=== PATIENT | female | born 1980 | race Caucasian/White ===

== ENCOUNTER 2021-12-30 13:25 | Inpatient (IN) | payer OTHER ==
[2021-12-30] MEDS: ELECTROLYTE-148 SOLN 1,000 ML IV SCH (13:30)
[2021-12-30] MEDS ORDERED: CITRIC ACID/SODIUM CITRATE 30 ML UNIT-DOSE CUP PO ONE (14:01)
[2021-12-30 14:36] VITALS: BMI 31.8
[2021-12-30] MEDS ORDERED: OXYTOCIN 30 UNITS in 0.9% NS 30 UNIT/500 ML INFUS.BAG IVPB ONE (14:54)
[2021-12-30] MEDS ORDERED: morphine SULFATE/PF 1 MG/2 ML (2cc Syringe - QUVA) ONE (14:56)
[2021-12-30] MEDS ORDERED: ceFAZolin SODIUM 1 GM VIAL ONE (15:00)
[2021-12-30] MEDS ORDERED: METOCLOPRAMIDE HCL INJECTION 10 MG/2 ML VIAL ONE (15:02)
[2021-12-30] MEDS ORDERED: ONDANSETRON 4 MG/2 ML VIAL ONE (15:02)
[2021-12-30] MEDS ORDERED: morphine SULFATE/PF 1 MG/2 ML (2cc Syringe - QUVA) IT ONE (15:20)
[2021-12-30] MEDS ORDERED: PHENYLEPHRINE HCL 10 MG/1 ML SINGLE DOSE VIAL ONE (15:24)
[2021-12-30] MEDS ORDERED: KETOROLAC TROMETHAMINE 30 MG/1 ML VIAL ONE (15:50)
[2021-12-30] MEDS ORDERED: SIMETHICONE 80 MG TAB.CHEW (FP) PO PRN (16:25)
[2021-12-30] MEDS ORDERED: METHYLERGONOVINE MALEATE 0.2 MG/1 ML AMP IM PRN (16:25)
[2021-12-30] MEDS ORDERED: ACETAMINOPHEN 325 MG TABLET (FP) PO PRN (16:25)
[2021-12-30] MEDS ORDERED: IBUPROFEN 800 MG/8 ML IJ IVPB PRN (16:29)
[2021-12-30] MEDS ORDERED: OXYTOCIN 20 UNITS in 0.9% NS 20 UNIT/1,000 ML INFUS.BAG IV ONE (16:43)
[2021-12-30] MEDS ORDERED: ONDANSETRON 4 MG/2 ML VIAL IVPUSH PRN (16:45)
[2021-12-30] MEDS: OXYTOCIN 20 UNITS in 0.9% NS 20 UNIT/1,000 ML INFUS.BAG IV SCH (17:00)
[2021-12-30 17:51] LABS: CORD BASE EXCESS -4.3 mmol/L (0-2); CORD HCO3 21.9 mmHg (20-29); CORD PCO2 44.1 mmHg (30-78); CORD pH 7.314 (7.14-7.44)
[2021-12-30 17:53] LABS: CORD BASE EXCESS -3.1 mmol/L (0-2); CORD HCO3 24.7 mmHg (20-29); CORD PCO2 55.4 mmHg (30-78); CORD pH 7.267 (7.14-7.44)
[2021-12-31] MEDS: OXYTOCIN 20 UNITS in 0.9% NS 20 UNIT/1,000 ML INFUS.BAG IV SCH ×2 (02:00→19:23)
[2021-12-31] MEDS ORDERED: oxyCODONE HCL 5 MG TABLET PO PRN ×2 (04:25)
[2021-12-31] MEDS: LEVOTHYROXINE NA 112 MCG TABLET (FP) PO SCH (06:29)
[2021-12-31 08:49] LABS: BASO % 0.6 % (0-2.0); EOS % 0.3 % (0-4.5); HEMATOCRIT 32.6 % (32.4-45.2); HEMOGLOBIN 10.7 GM/dL (10.7-15.3); LYMPH % 16.3 % (8-40); MCH 29.9 pg (25.7-33.7); MCHC 32.7 g/dl (32.0-36.0); MEAN CELL VOLUME 91.2 fl (80-96); MEAN PLT VOLUME 10.4 fl (7.5-11.1); MONO % 6.5 % (3.8-10.2); NEUT % 76.3 % (42.8-82.8); PLATELET COUNT 127 10^3/uL (134-434); RBC 3.57 M/mm3 (3.60-5.2); RDW 14.7 % (11.6-15.6); WHITE BLOOD COUNT 8.8 K/mm3 (4.0-10.0)
[2021-12-31] MEDS: ENOXAPARIN NA (PORCINE) 40 MG/0.4 ML DISP.SYRIN SQ SCH (09:15)
[2021-12-31] MEDS ORDERED: BISACODYL 10 MG SUPP.RECT RC PRN (16:25)
[2021-12-31] MEDS: IBUPROFEN 600 MG TABLET (FP) PO PRN ×2 (17:46→23:15)
[2021-12-31] MEDS: ELECTROLYTE-148 SOLN 1,000 ML IV SCH (19:23)
[2022-01-01] MEDS: LEVOTHYROXINE NA 112 MCG TABLET (FP) PO SCH (06:38)
[2022-01-01] MEDS: IBUPROFEN 600 MG TABLET (FP) PO PRN ×4 (07:00→20:15)
[2022-01-01] MEDS: ENOXAPARIN NA (PORCINE) 40 MG/0.4 ML DISP.SYRIN SQ SCH (10:47)
[2022-01-01 22:51] VITALS: TEMP 98.2
[2022-01-02] MEDS: LEVOTHYROXINE NA 112 MCG TABLET (FP) PO SCH (06:33)
[2022-01-02] MEDS: IBUPROFEN 600 MG TABLET (FP) PO PRN (06:34)
[2022-01-02] MEDS: ENOXAPARIN NA (PORCINE) 40 MG/0.4 ML DISP.SYRIN SQ SCH (09:31)
[2022-01-02 10:14] LABS: BASO % 0.2 % (0-2.0); EOS % 0.9 % (0-4.5); HEMATOCRIT 35.4 % (32.4-45.2); HEMOGLOBIN 11.4 GM/dL (10.7-15.3); LYMPH % 18.6 % (8-40); MCH 29.2 pg (25.7-33.7); MCHC 32.1 g/dl (32.0-36.0); MEAN PLT VOLUME 10.1 fl (7.5-11.1); MONO % 4.4 % (3.8-10.2); NEUT % 75.9 % (42.8-82.8); PLATELET COUNT 172 10^3/uL (134-434); RDW 14.9 % (11.6-15.6)
[2022-01-02 10:34] VITALS: BP 121/59; PULSE 75; RESP 16
== END 2022-01-02 11:40 | disposition home or self-care (01) | DRG 785 ==
LOC: JLDR 13:25 → J3W 20:00
PROVIDERS: ADMIT Obstetrics & Gynecology; ATTEND Obstetrics & Gynecology
PROC: 10D00Z1 Extraction of Products of Conception, Low, Open Approach (ICD-10-PCS; principal; 2021-12-30)
PROC: 0UT70ZZ Resection of Bilateral Fallopian Tubes, Open Approach (ICD-10-PCS; 2021-12-30)
DX: O32.2XX0 Maternal care for transverse and oblique lie, not applicable or unspecified (principal); O34.211 Maternal care for low transverse scar from previous cesarean delivery; O99.284 Endocrine, nutritional and metabolic diseases complicating childbirth; E03.9 Hypothyroidism, unspecified; O99.824 Streptococcus B carrier state complicating childbirth; Z30.2 Encounter for sterilization; Z3A.38 38 weeks gestation of pregnancy; Z37.0 Single live birth
CPT/HCPCS: 36415; 36600; 82803; 85025; 88302-TC; 88307-TC